=== PATIENT | female | born 1990 | race Caucasian/White ===

== ENCOUNTER → 2017-03-12 | Day surgery (SDC) | payer MEDICAID ==
[~2017-03-12] MED LIST: BACITRACIN IM FOR SOLN 50,000 UNIT VIAL ONE; BUPIVACAINE/EPINEPHRINE 0.25% 50 ML VIAL ONE; KETOROLAC TROMETHAMINE 30 MG/ML (IVP) VIAL IV PUSH ONE; LACTATED RINGER'S 1000 ML INJ 1,000 ML ONE; MIDAZOLAM HCL 2 MG/2 ML VIAL ONE; MORPHINE SULFATE 4 MG/ML INJ ONE; OMEP20TA PO; ONDANSETRON HCL 4 MG/2 ML VIAL IV PUSH ONE; PROPOFOL 200 MG/20 ML AMP IV ONE; SODIUM CHLORIDE 0.9% 20 ML VIAL ONE; TRICTAB PO; ceFAZolin INJ 1,000 MG VIAL ONE
--- NOTE | 2017-03-12 10:49 | TN ---
cc: OLAF HUSSEIN M.D. DATE OF SURGERY: 03/12/2017 PREOPERATIVE DIAGNOSIS Painful retained hardware left ankle in both the fibula and the tibia. POSTOPERATIVE DIAGNOSIS Painful retained hardware left ankle in both the fibula and the tibia. Exostosis fibula covering syndesmotic screws and washers. PROCEDURE PERFORMED 1. Removal of hardware from the left medial ankle (tibia) including a small fragment screw, cerclage wire, and two K-wires. 2. Excision exostosis left dista fibula 3. Removal syndesmotic screws and washers x2 from the lateral malleolus. SURGEON Shola. ANESTHESIA General via laryngeal mask augmented by local infiltration. ESTIMATED BLOOD LOSS Minimal. FLUID REPLACEMENT 800 cc of crystalloid. SPECIMENS The specimens consisted of the hardware that was fully removed from the ankle that was given to the patient as a souvenir per her request. TOURNIQUET TIME 52 minutes at 300 mmHg. COUNTS All counts were correct. COMPLICATIONS There were no intraoperative complications. DRAINS No drains were utilized. INDICATIONS FOR PROCEDURE Suzette is a 26-year-old young lady who sustained a displaced left ankle fracture back in June 2015. She had an open reduction, internal fixation of a bimalleolar fracture-dislocation with syndesmosis disruption by Dr. Noonan. She came under my care after Dr. Noonan was no longer in town practicing and she was having problems with hardware pain along the medial aspect of her ankle and her syndesmotic screws had never been removed and were at risk of breakage. As a result of her medial symptoms and the need to remove her syndesmotic screws, she is being taken to the operating room for hardware removal. We discussed the option of removing her fibular plate as well but she was disinterested in having that removed in order to limit her pain, and due to the fact that there was no screw loosening along the plate there was no reason to suggest it and it was left behind. She was fully aware that it may need to be removed in the future. DESCRIPTION OF PROCEDURE After the patient was properly identified in the holding area, she correctly marked her left ankle and I had marked it as well. She was then given one gram of intravenous Ancef and was taken into the operating suite. Her left lower extremity was prepped with alcohol and Hibiclens and she was draped in the normal standard fashion including the use of a sterile towel and Coban over the foot so that the foot was never exposed to the actual drapes and instrumentation. At this time a brief timeout was held confirming the left leg was the appropriate surgical site. The team was in agreement and the case was now begun. Treatment started on the medial aspect of the ankle. A 5.5 cm incision was already present. I went ahead and opened the distal half of it. The subcutaneous tissue was divided and hemostasis was achieved with electrocautery. Please note that I had previously placed a well-padded thigh-high tourniquet on her leg and had exsanguinated her with an Valente wrap and elevated to 300 mmHg immediately prior to the initiation of the case. At this time the saphenous vein and nerve came into clear view. I went ahead and retracted it posteriorly in order to avoid injury to both the vein and the nerve, and then I was able to palpate down along the medial malleolus. As soon as I got down to the cortical surface of the bone the cerclage wire came into view and I went ahead and subperiosteally dissected it. Once I was able to subperiosteally dissect the cerclage wire this then exposed the K-wires, one of which was greatly backed out, and the other was actually still buried at the level of the tip of the medial malleolus. The cortical screw was now identified as well. There was no evidence of any nonunionor new fracture present so I went ahead and removed all of the hardware sequentially without difficulty and it all came out intact. There was no evidence of any type of fracture motion immediately following removal of the hardware. There was smooth range of motion of the ankle without crepitus medially. I went ahead and thoroughly irrigated out the medial wound. I curetted down the surface of the screw hole so that it was nice and flat and antibiotic saline was irrigated once again. The periosteal tissue was closed with 2-0 Vicryl interupted stitches and then the subcutaneous layer was closed with 2-0 Vicryl inverted subcutaneous stitches as well. The skin was also then closed with jd. 10 cc of 0.25% Marcaine with epinephrine was then infiltrated subcutaneously for post-op pain relief. Attention was now directed to the lateral aspect of the ankle. The syndesmotic screws appeared to have been put in through stab incisions. I went ahead and made a 1 cm incision directly centering over the two syndesmotic screws and the subcutaneous tissue was divided. Hemostasis was achieved with electrocautery. As I dissected down onto the surface of the fibula immediately a prominence of bone came into view consistent with bone formatiom over the surface of the fibula. Please note that the both screws had reactive bone coverage on the surface like a classic exostosis. I used both rongeurs snd currettes to debride the bone snd expose the screws and washers. I was evetually able to remve both screws and washers. The syndesmosis was healed. There was no evidence of any breakage of either one of the screws or opening of the mortise. Following this I smoothed the cortical surface as much as possible with the use of a rongeur, irrigated with antibiotic-containing saline and closed the periosteal tissue with 2-0 Vicryl interrupted sutures and then closed with 2-0 Vicryl inverted subcutaneous stitches. The skin itself was closed with jd. At this time I went ahead and injected another 10 cc of 0.25% Marcaine with epinephrine to the lateral incision for post-op pain relief. At this time Xeroform, 4x4s, ABDs, soft roll and an Valente wrap was applied. The tourniquet was let down. There was brisk return of capillary refill, and she was awoken from anesthesia in stable condition. Before breaking down the drapes, we obtained intraoperative 2 view xrays of the left ankle which showed no mortise widening and good healing of the fractures and succesful removal of all of the planned hardware. She was then taken to Recovery. Appropriate postoperative orders have been written. Will anticipate allowing her to weight bear as tolerated as long as she does low impact activities. She has pain medication as necessary for post-op use. Olaf Hussein MD Electronically Signed Olaf Hussein MD SIS/BT /10:17 AM /10:29 AM [facility]ITALGildardo
== END | disposition home or self-care (01) ==
LOC: ESDC 07:34
PROVIDERS: ATTEND Orthopaedic Surgery Sports Medicine
DX: T84.84XA Pain due to internal orthopedic prosthetic devices, implants and grafts, initial encounter (principal)
CPT/HCPCS: 01480; 20680; 73600; 76000; J0690; J1885; J2250; J2270; J2405; J3010; J7120